=== PATIENT | female | born 1940 | race Caucasian/White ===

== ENCOUNTER → 2017-06-29 | Outpatient (CLI) | payer MEDICARE ==
[~2017-06-29] MED LIST: IOPAMIDOL 370 MG/ML 200 ML INFUS..BTL INJ ONE; SODIUM CHLORIDE 0.9% 50ML 100 ML ONE
[2017-06-29 13:32] LABS: BLOOD UREA NITROGEN 17 mg/dL (7-26); BUN/CREATININE RATIO 22 (6-25); CREATININE, SERUM 0.77 mg/dL (0.57-1.11); EST GLOMERULAR FILTRATION RATE > 60 ML/MIN (60-)
--- NOTE | 2017-06-29 15:56 | Diagnostic Imaging Report ---
PROCEDURE: CTA ABD/PEL/BILATERAL LOWER EXT RUNOFF W \T\ W/O CONTRAST COMPARISON:None. INDICATIONS:ATHEROSCLEROSIS TECHNIQUE: Multi-detector CT technology with Dose Reduction was employed. Images were obtained after the administration of 100 cc of Isovue 370 intravenously. For optimization of anatomic evaluation, multiplanar and volume rendering reconstructions were performed. Advanced 3-D off-line postprocessing were performed on a dedicated stand-alone workstation under the direct supervision of the interpreting physician. FINDINGS: Abdominal aorta and iliac vessels: Extensive calcific atherosclerotic changes are present throughout the abdominal aorta and bilateral lower extremity runoff. Moderate amount of plaque is noted around the origins of the abdominal aortic branch vessels. The superior mesenteric, inferior mesenteric, and celiac arteries are patent. Bilateral renal arteries are patent. The common, internal, and external iliac arteries are patent bilaterally. There is a metallic stent in the left common iliac artery. Femoral-popliteal vessels: Right Lower Extremity: Extensive calcific atherosclerotic changes are present throughout the right lower extremity vessels. Multiple short segment stenoses, without significant narrowing, are present. The common, superficial, and profunda femoral arteries are patent. There is a metallic stent in the right distal femoral artery with patent flow. Left Lower Extremity: Extensive calcific atherosclerotic changes are also present throughout the left lower extremity vessels. Multiple short segment stenoses, without significant narrowing, are present. The common, superficial, and profunda femoral arteries are patent. Infrapopliteal vessels: Right Lower Extremity: Multiple short segment stenoses, without segmental narrowing, are present in the popliteal and infrapopliteal vessels. The above the knee and below the knee segments of the popliteal artery are patent. The anterior tibial, posterior tibial, and peroneal arteries are patent with patent three vessel runoff. Left Lower Extremity: Multiple short segment stenoses, without segmental narrowing, are present in the popliteal and infrapopliteal vessels bilaterally. The above the knee and below the knee segments of the popliteal artery are patent. The anterior tibial, posterior tibial, and peroneal arteries are patent with patent three vessel runoff. Abdominal and Pelvic soft-tissues and organs: Lung bases: Unremarkable. Liver: Normal parenchyma. No focal mass. Biliary: Apparent thickening of the gallbladder wall at the fundus is likely related to folding. No radiopaque stones or pericholecystic fluid. No intrahepatic or extrahepatic biliary duct dilation. Spleen: No spenomegaly. No focal mass. Pancreas: No focal mass or pancreatic ductal dilatation. Adrenal Glands: No adrenal nodules. Kidneys: No obstructing calculi, hydronephrosis, or solid mass. Bilateral renal cysts, measuring up to 5.1 cm. GI: Moderate hiatal hernia. No air-fluid levels. Normal appendix. A moderate amount of retained feces limits intraluminal evaluation of the colon. Peritoneum/Retroperitoneum: No pneumoperitoneum or free intraperitoneal fluid. No lymphadenopathy. No drainable fluid collection. Reproductive Organs: There has been a hysterectomy. Musculoskeletal: No acute sclerotic or lucent lesion. Degenerative changes of the lumbar spine. CONCLUSION: 1. Extensive calcific atherosclerotic changes throughout the abdominal aorta and the vessels of the lower extremities. 2. There are patent metallic stents in the left common iliac and right distal femoral arteries. 3. In both lower extremities, there are multiple short segment stenoses without focal severe stenosis. 4. Patent 3 vessel runoff. Dictated by: Saurabh Villatoro M.D. on 06/29/2017 at 16:06 Electronically approved by: Saurabh Villatoro M.D. on 06/29/2017 at 16:06
== END ==
LOC: CT 12:22
DX: I70.213 Atherosclerosis of native arteries of extremities with intermittent claudication, bilateral legs (principal); I25.812 Atherosclerosis of bypass graft of coronary artery of transplanted heart without angina pectoris
CPT/HCPCS: 36415; 75635; 82565; 84520; Q9967

== ENCOUNTER → 2020-08-30 | Day surgery (SDC) | payer MEDICARE ==
[2020-08-27 12:36] LABS: BASOPHILS # (AUTO) 0.1 (0.0-0.1); BASOPHILS % 0.7 % (0.0-1.0); EOSINOPHILS # (AUTO) 0.2 (0.0-0.4); EOSINOPHILS % 1.3 % (0.0-6.0); HEMATOCRIT 36.9 % (34.2-44.1); LYMPHOCYTES # (AUTO) 1.4 (1.0-3.2); LYMPHOCYTES % 8.9 % (18.0-39.1); MEAN CORPUSCULAR HEMOGLOBIN 33.6 pg (28-32); MEAN CORPUSCULAR HGB CONC 32.5 g/dL (31-35); MEAN CORPUSCULAR VOLUME 103.4 fL (81-99); MONOCYTES # (AUTO) 0.8 (0.2-0.8); MONOCYTES % 5.4 % (4.4-11.3); NEUTROPHILS # (AUTO) 12.7 (2.1-6.9); NEUTROPHILS % 83.2 % (38.7-80.0); PLATELET COUNT 280 x10e3/uL (140-360); RED BLOOD COUNT 3.57 x10e6/uL (3.6-5.1); RED CELL DISTRIBUTION WIDTH 15.1 % (11.7-14.4)
[~2020-08-30] MED LIST changes: +ALLOPURINOL300 MG PO; +ALTOPREV40 MG PO; +AMLODIPINE BESYL5 MG PO; +ASPIRIN81 MG PO; +BENZOCAINE/TETRACAINE/BUTAMBEN AERO SPRAY 56 GM CAN ONE; +DEXTROSE 5% 250ML 250 ML IV ONE; +FENOFIBRATE145 MG PO; +FLUOXETINE HCL20 M1 PO; -IOPAMIDOL 370 MG/ML 200 ML INFUS..BTL INJ ONE; +KETAMINE HCL INJ 50 MG/ML 10 ML VIAL ONE; +LEVOTHYROXINE75 MCG PO; +LIDOCAINE HCL 2% LOCAL INJ 5 ML SDV VIAL INJ ONE; +METOPROLOL SUCC50 MG PO; +PROPOFOL IV EMULSION 10 MG/ML 20 ML VIAL ONE; +SLO FE PO; -SODIUM CHLORIDE 0.9% 50ML 100 ML ONE; +TEMAZEPAM15 MG PO; +VIT D3 PO; +ZESTRIL10 MG PO; +[UNRECOGNIZED DRUG - OTHER] PO
[2020-08-30 12:20] VITALS: BP 125/68
[2020-08-30 14:17] LABS: WBC,FECAL (FECAL LACTOFERRIN) NEGATIVE (NEGATIVE)
[2020-08-30 14:18] LABS: C DIFFICILE TOXIN A&B AMP PROB **POSITIVE** (NEGATIVE)
== END | disposition home or self-care (01) ==
LOC: OR 09:26
PROVIDERS: ATTEND Internal Medicine Gastroenterology
DX: K52.9 Noninfective gastroenteritis and colitis, unspecified (principal); D12.5 Benign neoplasm of sigmoid colon; K29.70 Gastritis, unspecified, without bleeding; K22.2 Esophageal obstruction; K27.4 Chronic or unspecified peptic ulcer, site unspecified, with hemorrhage; K20.90 Esophagitis, unspecified without bleeding; K44.9 Diaphragmatic hernia without obstruction or gangrene; K62.89 Other specified diseases of anus and rectum; K64.8 Other hemorrhoids; I10 Essential (primary) hypertension; I48.91 Unspecified atrial fibrillation; E11.9 Type 2 diabetes mellitus without complications; E03.9 Hypothyroidism, unspecified; E78.5 Hyperlipidemia, unspecified; M81.0 Age-related osteoporosis without current pathological fracture; Z88.6 Allergy status to analgesic agent; Z01.812 Encounter for preprocedural laboratory examination; Z20.822 Contact with and (suspected) exposure to COVID-19; Z79.82 Long term (current) use of aspirin; Z95.1 Presence of aortocoronary bypass graft; Z95.820 Peripheral vascular angioplasty status with implants and grafts
CPT/HCPCS: 36415 ×2; 43239; 43450; 45380; 45384; 82948; 83630; 83993; 85025; 87045; 87177; 87328; 87493; J2001; J2704; J7070; U0002; 45378

== ENCOUNTER → 2020-12-20 | Outpatient (CLI) | payer MEDICARE ==
[~2020-12-20] MED LIST changes: -BENZOCAINE/TETRACAINE/BUTAMBEN AERO SPRAY 56 GM CAN ONE; -DEXTROSE 5% 250ML 250 ML IV ONE; +HEPARIN SOD (PORCINE) 1000 UNIT/ML SDV ONE; -KETAMINE HCL INJ 50 MG/ML 10 ML VIAL ONE; -LIDOCAINE HCL 2% LOCAL INJ 5 ML SDV VIAL INJ ONE; -PROPOFOL IV EMULSION 10 MG/ML 20 ML VIAL ONE
== END ==
LOC: NM 12:28
PROVIDERS: ATTEND Internal Medicine Gastroenterology
DX: D64.9 Anemia, unspecified (principal)
CPT/HCPCS: 78278; A9512 ×2; J1644